=== PATIENT | female | born 1995 | race Asian ===

== ENCOUNTER 2019-03-07 12:33 | Observation (INO) | payer BC ==
[~2019-03-07] VITALS: Ht 152.4 cm; Wt 63.5 kg
== END 2019-03-07 15:30 | disposition home or self-care (01) ==
LOC: SPU 12:33
PROVIDERS: ADMIT Obstetrics & Gynecology; ATTEND Obstetrics & Gynecology
DX: O36.8130 Decreased fetal movements, third trimester, not applicable or unspecified (principal); Z3A.36 36 weeks gestation of pregnancy
CPT/HCPCS: 59025; 76819; 81002; G0378